=== PATIENT | male | born 1990 | race Caucasian/White ===

== ENCOUNTER 2018-04-08 20:09 | Emergency (ER) | payer OTHER ==
--- NOTE | 2018-04-08 20:36 | EDPHY ---
H & P Stated Complaint: L pinky caught in door, bleeding Source: Patient Exam Limitations: No limitations - Personal History Current Tetanus Diphtheria and Acellular Pertussis (TDAP): No - Medical/Surgical History Hx Asthma: No Hx Chronic Respiratory Disease: No Hx Diabetes: No Hx Cardiac Disease: No Hx Renal Disease: No Hx Cirrhosis: No Hx Alcoholism: No Hx HIV/AIDS: No Hx Splenectomy or Spleen Trauma: No Other PMH: "broken bones" - Social History Smoking Status: Heavy smoker Time Seen by Provider: 04/08/18 20:28 HPI/ROS: HPI: This is a 28-year-old male who presents with Chief Complaint: L pinky caught in door, bleeding Location: Left little finger Quality: Injury Duration: Prior to arrival Signs and Symptoms: + bleeding, no radiation, no numbness, no weakness, no tingling, no incontinence, + decreased range of motion, no swelling, + pain, no fever Timing: Acute Severity: Moderate Context: Patient is right-hand dominant, presents with accidentally getting his left little finger wedged in the door when 2 people tried to close it at the same time. He reports that he felt immediate, constant, severe pain and associated bleeding. He reports he applied direct pressure and the bleeding continued. He denies any radiation, weakness, paresthesias. He does report some decreased sensation at the tip of his left little finger. Denies LOC/head injury/neck pain/dizziness/nausea/vomiting/amnesia. Tetanus is not current. Modifying Factors: Comment: ROS: A comprehensive 10 system review of systems is otherwise negative aside from elements mentioned in the history of present illness. MEDICAL/SURGICAL/SOCIAL HISTORY: Medical history: Generally healthy. Does not take any regular medications. Surgical history: Denies Social history: Employed. Heavy smoker. CONSTITUTIONAL: Polite and cooperative adult white male, awake and alert, no obvious distress HEENT: Atraumatic and normocephalic. NECK: supple EXTREMITIES: 2/2 pulses, strength 5/5, left little finger shows partial finger tip/nail avulsion and scant active bleeding. DIP/PIP/MCP flexion/extension intact with good light touch sensation. no clubbing, no cyanosis or edema. NEUROLOGICAL: no focal neuro deficits. GCS 15. Light touch sensation intact. SKIN: Warm and dry, no erythema. no rash. Good capillary refill. (Ivonne,Terra) Constitutional: Initial Vital Signs Temperature (C) 36.8 C 04/08/18 20:14 Heart Rate 115 H 04/08/18 20:14 Respiratory Rate 19 04/08/18 20:14 Blood Pressure 142/104 H 04/08/18 20:14 O2 Sat (%) 95 04/08/18 20:14 O2 Delivery Mode Room Air Allergies/Adverse Reactions: No Known Allergies Allergy (Unverified 04/08/18 20:14) Home Medications: Medication Instructions Recorded Cephalexin [Keflex (*)] 500 mg PO QID 7 Days cap 04/08/18 Medical Decision Making - Diagnostics Imaging Results: Imaging Impressions Finger X-Ray 04/08/18 20:29 Impression: 1. Nail bed injury, possibly resulting in an "open" injury. 2. Small avulsion chip involving the dorsal lateral DIP joint. Procedures: Procedure: Nail bed reconstruction. Laceration repair: Verbal consent was obtained from the patient. A nail bed laceration was identified on the left little finger. The finger was anesthetized in the usual fashion using digital block of 6 mL 1% lidocaine without epinephrine. The wound was scrubbed, draped and explored to its base with a gloved finger. The nail plate was replaced using #6, chromic gut sutures. There was no fracture identified below the nail bed. The nail bed was reconstructed with #5 chromic gut sutures and #5, 4-0 Prolene. The procedure was performed by myself. Procedure: Laceration repair. Verbal consent was obtained from the patient. The left little finger, complex laceration was anesthetized in the usual fashion. The wound was irrigated, draped and explored to its base with a gloved finger. There were no deep structures involved. No tendon injury was identified. The wound was repaired with #5 Prolene. Good hemostasis was achieved and patient tolerated procedure well. Xeroform and clean sterile dressing applied. The procedure was performed by myself. Procedure: Splint placement. A right finger splint was applied. After application of the splint I returned and re-examined the patient. The splint was adequately immobilizing the joint and distal to the splint the patient's circulation and sensation was intact. (Yisel Coronado) ED Course/Re-evaluation: Vital signs reviewed and stable upon arrival. Tetanus booster ordered Digital block performed and copiously irrigated xray shows: Nail bed injury, possibly resulting in an "open" injury. Small avulsion chip involving the dorsal lateral DIP joint. Given 1 g of Ancef and p.o. Keflex prescription. After long discussion with patient, he politely refuses Hand consult due to financial concerns. He requests for me to repair in the emergency room. Complex repair performed Xeroform, tube gauze and finger splint applied. Verbal and written wound care instructions provided with Hand follow-up. No signs of neurovascular compromise/tenting of skin/compartment syndrome/ extremities and joints examined above and below area of concern and are neurovascularly intact. This patient was seen under the supervision of my secondary supervising physician. I evaluated care for this patient independently. Discussed this patient with Dr. Branch who did not see the patient. (Yisel Coronado) I did not see this patient while he was in the emergency department. However his care was discussed with the PA while the patient was in the department. I agree with treatment plan and management (Benoit Branch) Differential Diagnosis: Differential diagnosis includes but is not limited to finger fracture, open fracture, nail bed injury, laceration. (Yisel Coronado) - Data Points Medications Given: Discontinued Medications Cephalexin (Keflex 500 Mg Prepack#4) 1 btl TAKEHOME EDNOW ONE PRN Reason: Protocol Stop: 04/08/18 21:20 Last Admin: 04/08/18 21:30 Dose: 1 btl Diphtheria/Tetanus/Acell Pertussis (Boostrix) 0.5 ml IM .ONCE ONE Stop: 04/08/18 20:38 Last Admin: 04/08/18 20:45 Dose: 0.5 ml Oxycodone/Acetaminophen (Percocet 5/325mg Prepack#4) 1 btl TAKEHOME EDNOW ONE Stop: 04/08/18 21:26 Last Admin: 04/08/18 21:31 Dose: 1 btl Departure - Departure Disposition: Home, Routine, Self-Care Clinical Impression: Laceration of left little finger with damage to nail Qualifiers: Encounter type: initial encounter Foreign body presence: without foreign body Qualified Code(s): S61.317A - Laceration without foreign body of left little finger with damage to nail, initial encounter Traumatic avulsion of nail plate of finger Qualifiers: Encounter type: initial encounter Qualified Code(s): S61.309A - Unspecified open wound of unspecified finger with damage to nail, initial encounter Condition: Good Instructions: Cephalexin (By mouth), Oxycodone/Acetaminophen (By mouth), Care For Your Stitches (ED), Laceration (ED), Nail Avulsion (ED) Additional Instructions: Keep the dressing dry and in place for 3 days. After 48 hours, you may remove the dressing; wash the site daily with mild soap and water; then pat dry. Take Tylenol 650 mg every 4 hours and/or Ibuprofen 600 mg every 8 hours with food as needed for pain. Take Percocet every 4-6 hours as needed for severe/breakthrough pain. Take all antibiotics as directed. Do not skip a dose. Follow up with Hand in 2-3 days at which time they will evaluate and recommend with you if conservative management versus surgery is indicated. Return to the ER immediately if you experience redness, red streaks, have fevers /chills, flu like symptoms, limited range of motion, or any other symptoms that concern you. Wound Care Follow-Up: Removal of sutures in [10] days. Suture removal is complimentary in uncomplicated cases. Infection or abnormal findings would require reevaluation by the MD. In that case, you may be billed. Referrals: Aaron Crawford MD [Medical Doctor] - As per Instructions Prescriptions: Cephalexin [Keflex (*)] 500 mg PO QID 7 Days cap
[2018-04-08] MEDS ORDERED: TDAP ADULT 0.5 ML INJ (BOOSTRIX) IM ONE (20:37)
[2018-04-08] MEDS ORDERED: CEPHALEXIN 500MG PREPACK#4 BTL TAKEHOME ONE (21:19)
[2018-04-08] MEDS ORDERED: OXYCODONE/APAP 5/325MG PREPACK#4 BTL TAKEHOME ONE (21:25)
[2018-04-08 21:36] VITALS: BP 132/87
== END 2018-04-08 21:36 | disposition home or self-care (01) ==
PROC: 0HQQXZZ Repair Finger Nail, External Approach (ICD-10-PCS; principal; 2018-04-08)
PROC: 0HQGXZZ Repair Left Hand Skin, External Approach (ICD-10-PCS; 2018-04-08)
DX: S69.92XA Unspecified injury of left wrist, hand and finger(s), initial encounter (principal); W23.0XXA Caught, crushed, jammed, or pinched between moving objects, initial encounter; Y92.9 Unspecified place or not applicable; Y93.9 Activity, unspecified; Y99.9 Unspecified external cause status